=== PATIENT | male | born 1990 | race Caucasian/White ===

== ENCOUNTER 2018-08-28 09:25 | Emergency (ER) | payer SELFPAY ==
[~2018-08-28] VITALS: Ht 182.9 cm; Wt 116.8 kg
[2018-08-28 09:26] VITALS: BP 155/67; PULSE 67; RESP 18; Ht 182.9 cm; Wt 116.8 kg
[2018-08-28] MEDS ORDERED: KETOROLAC 60 MG INJ IM STA (09:47)
[2018-08-28] MEDS ORDERED: DEXAMETHASONE 10 MG/ML 1 ML INJ IM ONE (10:00)
[2018-08-28] MEDS ORDERED: DIAZEPAM 5 MG TAB PO ONE (10:00)
[2018-08-28] MEDS ORDERED: OXYC-279 PO (11:52)
[2018-08-28] MEDS ORDERED: NAPR-985 PO (11:52)
[2018-08-28] MEDS ORDERED: MED4DP PO (11:52)
[2018-08-28] MEDS ORDERED: CYCL10TA7 PO (11:53)
--- NOTE | 2018-08-28 12:03 | ERD ---
ER Documentation Chief Complaint Chief Complaint BACK PAIN TODAY HPI 28-year-old male presents with back pain x1 day. 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 Denies any isolated traumatic injury. Denies any numbness or tingling down his legs and has normal urination bowel movement. Denies fevers. Denies lower extremity weakness. Denies medical problems. NKDA. Surgical history knee surgery. Social history denies ROS All systems reviewed and are negative except as per history of present illness. Medications Home Meds Active Scripts Cyclobenzaprine Hcl* (Cyclobenzaprine Hcl*) 10 Mg Tablet, 10 MG PO TID, #15 TAB Prov:JUAN JOSÉ PERALES PA-C 08/28/18 Naproxen* (Naprosyn*) 500 Mg Tablet, 500 MG PO BID PRN for PAIN AND/OR INFLAMMATION, #30 TAB Prov:JUAN JOSÉ PERALES PA-C 08/28/18 Methylprednisolone* (Medrol* DOSE PACK) 4 Mg/Dose-Pack Tab.ds.pk, 4 MG PO . DIRECTED, #1 PACKET Prov:JUAN JOSÉ PERALES PA-C 08/28/18 Oxycodone HCl/Acetaminophen (Percocet 5-325 mg Tablet) 1 Each Tablet, 1 EACH PO DAILY, #7 TAB Prov:JUAN JOSÉ PERALES PA-C 08/28/18 PMhx/Soc Medical and Surgical Hx: pt denies Medical Hx, pt denies Surgical Hx Hx Alcohol Use: No Hx Substance Use: No Hx Tobacco Use: No FmHx Family History: No diabetes, No coronary disease, No other Physical Exam Vitals Vital Signs Date Temp Pulse Resp B/P (MAP) Pulse Ox O2 O2 Flow FiO2 Time Delivery Rate 08/28/18 98.1 67 18 155/67 99 09:26 (96) Physical Exam GENERAL: The patient is well-appearing, well-nourished, in no acute distress CHEST: Clear to auscultation bilaterally. There are no rales, wheezes or rhonchi. HEART: Regular rate and rhythm. No murmurs, clicks, rubs or gallops. No S3 or S4. ABDOMEN:Soft, nontender and nondistended. Good bowel sounds. No rebound or guarding. No gross peritonitis. No gross organomegaly or masses. No Huff sign or McBurney point tenderness. BACK: No midline or flank tenderness. Pain to the lumbar spine. EXTREMITIES: Equal pulses bilaterally. There is no peripheral clubbing, cyanosis or edema. No focal swelling or erythema. Full range of motion. Grossly neurovascularly intact. NEUROLOGIC: Alert and oriented. Cranial nerves II through XII intact. Motor strength in all 4 extremities with 5 out of 5 strength. Sensation grossly intact. Normal speech and gait. SKIN: There is no apparent rash or petechiae. The skin is warm and dry. Results 24 hrs Current Medications Medications Dose Sig/Kaden Start Time Status Last (Trade) Ordered Route PRN Stop Time Admin Dose Reason Admin Diazepam 5 mg ONCE ONCE 08/28/18 DC 08/28/18 (Valium) PO 10:00 09:55 08/28/18 10:01 Ketorolac 60 mg ONCE STAT 08/28/18 DC 08/28/18 Tromethamine IM 09:47 09:55 (Toradol) 08/28/18 09:48 10 mg ONCE ONCE 08/28/18 DC 08/28/18 Dexamethasone IM 10:00 09:54 (Decadron) 08/28/18 10:01 Procedures/MDM DIAGNOSTIC IMAGING REPORT Patient: JENNIFER GIORDANO : 1990 Age: 28 Sex: M MR #: [id number] DOS: 08/28/18 0947 Ordering MD: SANTANA PERALES PA-C Location: [facility] Room/Bed: PROCEDURE: CT Lumbar Spine. CLINICAL INDICATION: Low back pain TECHNIQUE: Axial imaging was obtained through the lumbar spine using a multi- slice CT scanner. Standard CT scan of the lumbar spine without contrast protocols were performed. CTDI: 37.19 and DLP: 1420.66 One or more of the following dose reduction techniques were used: - Automated exposure control. - Adjustment of the mA and/or kV according to patient size. Use of iterative reconstruction technique. Dicom images are available COMPARISON: None. FINDINGS: Bilateral L5 spondylolysis defects. Grade 1 approximately 5 mm anterior spondylolisthesis of L5-1 S1 vertebral bodies. Remainder the posterior elements are intact. No other subluxations. Bony mineralization is normal without focal bony blastic or lytic lesions. No paraspinous masses. T12-L1 disc level: Disc space maintains normal heights without disc herniation central spinal canal stenosis or neural foraminal narrowing. Facet joints are unremarkable. L1-2 disc level: Disc space maintains normal heights without disc herniation central spinal canal stenosis or neural foraminal narrowing. Facet joints are unremarkable L2-3 disc level: Disc space maintains normal heights without disc herniation central spinal canal stenosis or neural foraminal narrowing. Facet joints are unremarkable. L3-4 disc level: Disc space maintains normal heights with mild posterior broad- based disc bulge. No disc herniation central spinal canal stenosis or neural foraminal narrowing. Facet joints are unremarkable. L4-5 disc level: Disc space maintains normal heights. Mild broad-based disc bulge with central 5 mm disc protrusion impressing adjacent thecal sac but no central spinal canal stenosis or neural foraminal narrowing. Facet joints are unremarkable. L5-S1 disc level: Mild narrowing of the disc space. Moderate posterior broad- based disc bulge. No evidence of central spinal canal stenosis or neural foraminal narrowing. Facet joints are unremarkable. IMPRESSION: 1. No evidence of acute fractures. 2. Bilateral L5 spondylolysis defects. Grade 1 approximately 5 mm anterior spondylolisthesis of 51 S1 vertebral bodies. 3. At the L4-5 disc level there is a mild posterior broad-based disc bulge with 5 mm posterior central disc protrusion impressing adjacent thecal sac but no central spinal canal stenosis. 4. At the L5-S1 disc level there is moderate posterior broad-based disc bulge but no central spinal canal stenosis or neural foraminal narrowing. ER course: Valium, Decadron and Toradol given in ED. MDM: 28-year-old male presenting with back pain. I have low suspicion for cauda equina, discitis or epidural abscess. I have low suspicion for acute fracture dislocation. Patient has possible protruding discs are likely causing him pain. Patient is told symptoms change or worsen to return immediately to the ER. All questions answered at discharge Departure Diagnosis: Primary Impression: Injury of back Condition: Stable Patient Instructions: Back Sprain/Strain Referrals: JULIO CESAR PRESTON MD [facility] YOU HAVE RECEIVED A MEDICAL SCREENING EXAM AND THE RESULTS INDICATE THAT YOU DO NOT HAVE A CONDITION THAT REQUIRES URGENT TREATMENT IN THE EMERGENCY DEPARTMENT. FURTHER EVALUATION AND TREATMENT OF YOUR CONDITION CAN WAIT UNTIL YOU ARE SEEN IN YOUR DOCTORS OFFICE WITHIN THE NEXT 1-2 DAYS. IT IS YOUR RESPONSIBILITY TO MAKE AN APPOINTMENT FOR FOLOW-UP CARE. IF YOU HAVE A PRIMARY DOCTOR --you should call your primary doctor and schedule an appointment IF YOU DO NOT HAVE A PRIMARY DOCTOR YOU CAN CALL OUR PHYSICIAN REFERRAL HOTLINE AT IF YOU CAN NOT AFFORD TO SEE A PHYSICIAN YOU CAN CHOSE FROM THE FOLLOWING [facility] [address] [facility] [address] [facility] [address] [facility] [address] [facility]. [facility] [address] [facility]. [facility] [address] Additional Instructions: FOLLOW UP WITH YOUR PRIMARY CARE PHYSICIAN TOMORROW.Return to this facility if you are not improving as expected. JUAN JOSÉ PERALES PA-C August 28, 2018 12:03
== END 2018-08-28 12:02 | disposition home or self-care (01) ==
LOC: FTE 09:25
DX: S39.92XA Unspecified injury of lower back, initial encounter (principal); X58.XXXA Exposure to other specified factors, initial encounter; Y92.9 Unspecified place or not applicable
CPT/HCPCS: 72131; 96372; 99285; J1100; J1885